=== PATIENT | female | born 1995 | race Caucasian/White ===

== ENCOUNTER 2017-03-23 12:01 | Emergency (ER) | payer BC, OTHER ==
[~2017-03-23] VITALS: Ht 167.6 cm; Wt 83.9 kg
[2017-03-23 12:20] LABS: BILIRUBIN,URINE NEGATIVE (NEGATIVE); KETONES,URINE NEGATIVE (NEGATIVE); LEUKOCYTE ESTERASE ,URINE 1+ (NEGATIVE); NITRITE,URINE NEGATIVE (NEGATIVE); PH,URINE 7 (5-9); PROTEIN,URINE NEGATIVE (NEGATIVE); UROBILINOGEN,URINE NORMAL (NORMAL)
--- NOTE | 2017-03-23 12:26 | ED General ---
General Chief Complaint: General Problems/Pain Stated Complaint: NAUSEA/L SIDE BACK PAIN Nursing Triage Note: pt ambulated to room. pt states approx 1 hour ago she started having severe left lower back pain. pt states she moved yesterday but didn't lift or do anything extra to cause this pain. pt states she is also having nausea but no vomiting. Nursing Sepsis Screen: No Definite Risk Source of Information: Patient Exam Limitations: No Limitations History of Present Illness Time Seen by Provider: 12:26 Initial Comments 21-year-old female patient presents to the emergency department complaints of left low back pain beginning one hour prior to arrival. Patient reports pain was a 7/10. Patient did take ibuprofen one hour ago with minimal improvement in symptoms. States pain is now 6/10. Patient reports moving yesterday, but did not lift anything heavy. Denies into the back to her knowledge. Patient does report nausea without vomiting. Denies diarrhea or urinary symptoms. Denies bowel or bladder incontinence. Timing/Duration: 1 Hour, Constant Modifying Factors: worse with Medication (no improvement with ibuprofen), worse with Movement Allergies and Home Medications Allergies Coded Allergies: No Known Drug Allergies (Unverified , 03/23/17) Home Medications Cyclobenzaprine HCl 10 Mg Tablet, 10 MG PO Q8H PRN for SPASMS, #14 Ref 0 Prescribed by: BEKAH GARCIA on 03/23/17 1335 Naproxen 500 Mg Tablet, 500 MG PO BID PRN for PAIN-MODERATE, #20 Ref 0 Prescribed by: BEKAH GARCIA on 03/23/17 1335 Ondansetron 8 Mg Tab.rapdis, 8 MG PO Q6H PRN for NAUSEA/VOMITING-1ST LINE, #10 Ref 0 Prescribed by: BEKAH GARCIA on 03/23/17 1335 Constitutional: No chills, No fever, No malaise Respiratory: no symptoms reported Cardiovascular: no symptoms reported Gastrointestinal: No abdominal pain, No constipation, No diarrhea, No melena, nausea, No vomiting Genitourinary: No decreased output, No discharge, No dysuria, No frequency, No hematuria, No pain : No LMP: Mar 02, 2017 Musculoskeletal: see HPI, back pain, No joint pain, No neck pain Skin: no symptoms reported Psychiatric/Neurological: Denies Numbness, Denies Paresthesia, Denies Tingling , Denies Weakness All Other Systems Reviewed Negative Unless Noted: Yes (Negative excepted noted.) Past Dogsotg-Nqdbyn-Vtsrga Hx Patient Social History Alcohol Use: Denies Use Recreational Drug Use: No Smoking Status: Never a Smoker 2nd Hand Smoke Exposure: No Recent Foreign Travel: No Contact w/Someone Who Travel: No Recent Infectious Disease Expo: No Recent Hopitalizations: No Seasonal Allergies Seasonal Allergies: No Surgeries HX Surgeries: Yes Surgeries: Orthopedic Respiratory Hx Respiratory Disorders: No Cardiovascular Hx Cardiac Disorders: No Neurological Hx Neurological Disorders: No Genitourinary Hx Genitourinary Disorders: No Gastrointestinal Hx Gastrointestinal Disorders: No Musculoskeletal Hx Musculoskeletal Disorders: No Reviewed Nursing Assessment Reviewed/Agree w Nursing PMH: Yes Family Medical History Significant Family History: No Pertinent Family Hx Physical Exam Vital Signs Vital Sign - Last 12Hours 03/23/17 12:12 Temp 97.5 Pulse 91 Resp 16 B/P (MAP) 140/80 Pulse Ox 98 O2 Delivery Room Air Capillary Refill : Less Than 3 Seconds General Appearance: No Apparent Distress, WD/WN HEENT: PERRL/EOMI, Pharynx Normal Neck: Normal Inspection, Supple Respiratory: Lungs Clear, Normal Breath Sounds, No Respiratory Distress, Other (left lower posterior and lateral ribs tender to palpation without evidence of deformity or swelling.) Cardiovascular: Regular Rate, Rhythm, No Edema, No Murmur, Normal Peripheral Pulses Gastrointestinal: Normal Bowel Sounds, No Organomegaly, Non Tender, Soft, No Distended Back: Normal Inspection, No CVA Tenderness, No Vertebral Tenderness, Other ( tenderness palpation over the left low back overlying the lower ribs. Muscle spasm noted. ) Extremity: Normal Capillary Refill, Normal Inspection, Normal Range of Motion, Non Tender, No Pedal Edema Neurologic/Psychiatric: Alert, Oriented x3, No Motor/Sensory Deficits, Normal Mood/Affect Skin: Normal Color, Warm/Dry Progress/Results/Core Measures Results/Orders Lab Results Laboratory Tests Test 03/23/17 12:09 03/23/17 12:49 Range/Units Urine Color YELLOW Urine Clarity SLIGHTLY CLOUDY Urine pH 7 5-9 Urine Specific [place] 1.010 L 1.016-1.022 Urine Protein NEGATIVE NEGATIVE Urine Glucose (UA) NEGATIVE NEGATIVE Urine Ketones NEGATIVE NEGATIVE Urine Nitrite NEGATIVE NEGATIVE Urine Bilirubin NEGATIVE NEGATIVE Urine Urobilinogen NORMAL NORMAL MG/DL Urine Leukocyte Esterase 1+ H NEGATIVE Urine RBC (Auto) NEGATIVE NEGATIVE Urine RBC NONE /HPF Urine WBC RARE /HPF Urine Squamous Epithelial Cells 10-25 H /HPF Urine Crystals NONE /LPF Urine Bacteria TRACE /HPF Urine Casts NONE /LPF Urine Mucus NEGATIVE /LPF Urine Culture Indicated NO White Blood Count 9.2 4.3-11.0 10^3/uL Red Blood Count 4.63 4.35-5.85 10^6/uL Hemoglobin 12.3 11.5-16.0 G/DL Hematocrit 38 35-52 % Mean Corpuscular Volume 82 80-99 FL Mean Corpuscular Hemoglobin 27 25-34 PG Mean Corpuscular Hemoglobin Concent 33 32-36 G/DL Red Cell Distribution Width 13.6 10.0-14.5 % Platelet Count 332 130-400 10^3/uL Mean Platelet Volume 10.8 H 7.4-10.4 FL Neutrophils (%) (Auto) 64 42-75 % Lymphocytes (%) (Auto) 28 12-44 % Monocytes (%) (Auto) 7 0-12 % Eosinophils (%) (Auto) 1 0-10 % Basophils (%) (Auto) 0 0-10 % Neutrophils # (Auto) 5.9 1.8-7.8 X 10^3 Lymphocytes # (Auto) 2.6 1.0-4.0 X 10^3 Monocytes # (Auto) 0.6 0.0-1.0 X 10^3 Eosinophils # (Auto) 0.1 0.0-0.3 10^3/uL Basophils # (Auto) 0.0 0.0-0.1 10^3/uL Sodium Level 141 135-145 MMOL/L Potassium Level 3.9 3.6-5.0 MMOL/L Chloride Level 109 H 98-107 MMOL/L Carbon Dioxide Level 21 21-32 MMOL/L Anion Gap 11 5-14 MMOL/L Blood Urea Nitrogen 9 7-18 MG/DL Creatinine 0.78 0.60-1.30 MG/DL Estimat Glomerular Filtration Rate > 60 BUN/Creatinine Ratio 12 Glucose Level 94 70-105 MG/DL Calcium Level 9.6 8.5-10.1 MG/DL Total Bilirubin 0.3 0.1-1.0 MG/DL Aspartate Amino Transf (AST/SGOT) 16 5-34 U/L Alanine Aminotransferase (ALT/SGPT) 21 0-55 U/L Alkaline Phosphatase 102 40-136 U/L Total Protein 7.4 6.4-8.2 GM/DL Albumin 3.8 3.2-4.5 GM/DL Lipase 14 8-78 U/L My Orders Orders - BEKAH GARCIA Cbc With Automated Diff (03/23/17 12:13) Comprehensive Metabolic Panel (03/23/17 12:13) Lipase (03/23/17 12:13) Ua Culture If Indicated (03/23/17 12:13) Saline Lock/Iv-Start (03/23/17 12:13) Urine Bedside (03/23/17 12:13) Fentanyl Injection (Sublimaze Injection (03/23/17 12:38) Ondansetron Injection (Zofran Injectio (03/23/17 12:45) Ns Iv 1000 Ml (Sodium Chloride 0.9%) (03/23/17 12:38) Orphenadrine Injection (Norflex Injectio (03/23/17 12:38) Medications Given in ED Current Medications Medications Dose Ordered Sig/Rory Route Start Time Stop Time Status Last Admin Dose Admin Ondansetron HCl 4 mg ONCE ONCE IVP 03/23/17 12:45 03/23/17 12:46 DC 03/23/17 12:59 4 MG Sodium Chloride 1,000 ml @ 0 mls/hr Q0M ONCE IV 03/23/17 12:38 03/23/17 12:40 DC 03/23/17 13:00 1,000 MLS/HR Vital Signs/I&O Vital Sign - Last 12Hours 03/23/17 12:12 Temp 97.5 Pulse 91 Resp 16 B/P (MAP) 140/80 Pulse Ox 98 O2 Delivery Room Air Blood Pressure Mean: 100 Point of Care Testing Urine -Bedside: Negative Departure Communication Progress Notes Patient seen and evaluated later. Patient was given IV fluids, Zofran, Norflex , and a small dose of fentanyl. Patient reports resolution of symptoms. Plan for discharge to home. Patient ambulated from the emergency department without difficulty. Impression Impression: Primary Impression: Strain of muscle, fascia and tendon of lower back, initial encounter Additional Impression: Nausea alone Disposition: 01 HOME, SELF-CARE Condition: Improved Departure-Patient Inst. Decision time for Depature: 13:31 Referrals: [facility] (PCP/Family) Primary Care Physician Patient Instructions: Low Back Pain (DC) Add. Discharge Instructions: All discharge instructions reviewed with patient and/or family. Voiced understanding. Medications as directed. Tylenol extra strength over the counter as directed. Ice pack or heating pads as needed for pain. Consider chiropractor or massage therapy. Follow-up with your family practitioner for recheck if needed. Return to the emergency department for worsened symptoms, abdominal pain, numbness, weakness, bowel incontinence, bladder incontinence, or any other concerns. Scripts Naproxen (Naprosyn) 500 Mg Tablet 500 MG PO BID Y for PAIN-MODERATE, #20 TAB 0 Refills Prov: BEKAH GARCIA 03/23/17 Cyclobenzaprine HCl (Cyclobenzaprine HCl) 10 Mg Tablet 10 MG PO Q8H Y for SPASMS, #14 TAB 0 Refills Prov: BEKAH GARCIA 03/23/17 Ondansetron (Ondansetron Odt) 8 Mg Tab.rapdis 8 MG PO Q6H Y for NAUSEA/VOMITING-1ST LINE, #10 TAB 0 Refills Prov: BEKAH GARCIA 03/23/17 Work/School Note: Work Release Form Date Seen in the Emergency Department: Mar 23, 2017 Return to Work: Mar 25, 2017 Images Torso/Trunk 1 - Muscle Spams, Tenderness BEKAH GARCIA Mar 23, 2017 12:26
[2017-03-23 12:32] LABS: WBC,URINE RARE /HPF
[2017-03-23] MEDS ORDERED: ORPHENADRINE 60 MG/2 ML (NORFLEX) AMP IV STA (12:38)
[2017-03-23] MEDS ORDERED: fentaNYL INJECTION 100 MCG/2 ML AMP IVP STA (12:38)
[2017-03-23] MEDS ORDERED: NS IV 1000 ML 1,000 ML IV ONE (12:38)
[2017-03-23] MEDS ORDERED: ONDANSETRON 4 MG/2 ML (SDV) Z0FRAN IVP ONE (12:45)
[2017-03-23 12:58] LABS: BASOPHILS % (AUTO) 0 % (0-10); EOSINOPHILS # (AUTO) 0.1 10^3/uL (0.0-0.3); EOSINOPHILS % (AUTO) 1 % (0-10); LYMPHOCYTES # (AUTO) 2.6 X 10^3 (1.0-4.0); LYMPHOCYTES % (AUTO) 28 % (12-44); MEAN CORPUSCULAR HEMOGLOBIN 27 PG (25-34); MEAN CORPUSCULAR HGB CONC 33 G/DL (32-36); MEAN CORPUSCULAR VOLUME 82 FL (80-99); MEAN PLATELET VOLUME 10.8 FL (7.4-10.4); MONOCYTES # (AUTO) 0.6 X 10^3 (0.0-1.0); MONOCYTES % (AUTO) 7 % (0-12); NEUTROPHILS # (AUTO) 5.9 X 10^3 (1.8-7.8); NEUTROPHILS % (AUTO) 64 % (42-75); PLATELET COUNT 332 10^3/uL (130-400); RED BLOOD COUNT 4.63 10^6/uL (4.35-5.85); RED CELL DISTRIBUTION WIDTH 13.6 % (10.0-14.5); WHITE BLOOD COUNT 9.2 10^3/uL (4.3-11.0)
[2017-03-23 13:18] LABS: ALANINE AMINOTRANSFERASE 21 U/L (0-55); ALBUMIN 3.8 GM/DL (3.2-4.5); ANION GAP 11 MMOL/L (5-14); ASPARTATE AMINO TRANSFERASE 16 U/L (5-34); BILIRUBIN,TOTAL 0.3 MG/DL (0.1-1.0); BLOOD UREA NITROGEN 9 MG/DL (7-18); BUN/CREATININE RATIO 12; CALCIUM 9.6 MG/DL (8.5-10.1); CARBON DIOXIDE 21 MMOL/L (21-32); CHLORIDE 109 MMOL/L (98-107); CREATININE SERUM 0.78 MG/DL (0.60-1.30); GFR ESTIMATED > 60; GLUCOSE 94 MG/DL (70-105); LIPASE 14 U/L (8-78); POTASSIUM 3.9 MMOL/L (3.6-5.0); SODIUM 141 MMOL/L (135-145); TOTAL PROTEIN 7.4 GM/DL (6.4-8.2)
[2017-03-23] MEDS ORDERED: ONDA8TAB13 PO (13:35)
[2017-03-23] MEDS ORDERED: CYCL10TA9 PO (13:35)
[2017-03-23] MEDS ORDERED: NAPR500T PO (13:35)
[2017-03-23 14:00] VITALS: BP 124/76
== END 2017-03-23 14:00 | disposition home or self-care (01) ==
LOC: EDUNIT# 12:01 → ER 12:04
DX: S39.012A Strain of muscle, fascia and tendon of lower back, initial encounter (principal); R11.0 Nausea; X58.XXXA Exposure to other specified factors, initial encounter
CPT/HCPCS: 36415; 80053; 81000; 83690; 84703; 85025; 96361; 96374; 96375

== ENCOUNTER → 2017-08-06 | Outpatient (CLI) | payer BC ==
[~2017-08-06] MED LIST: CYCL10TA9 PO; NAPR-1071 PO; ONDA8TAB13 PO
--- NOTE | 2017-08-06 11:50 | Diagnostic Imaging Report ---
PROCEDURE: MRI left joint lower extremity without contrast. TECHNIQUE: Multiplanar, multisequence non contrast-enhanced MRI of the left lower extremity was accomplished. INDICATION: Left knee pain. FINDINGS: There is no significant effusion. No Montes's cyst. The extensor mechanism is intact. The ACL and the PCL are intact. The medial and the lateral menisci appear intact. The MCL and lateral collateral ligament complex appear intact. There is no significant bone marrow contusion. The articular cartilage appears intact. IMPRESSION: Unremarkable exam. Dictated by: Dictated on workstation # [id number]
== END ==
LOC: RAD 10:10
PROVIDERS: ATTEND Orthopaedic Surgery
DX: S83.207A Unspecified tear of unspecified meniscus, current injury, left knee, initial encounter (principal); M67.52 Plica syndrome, left knee
CPT/HCPCS: 73721

== ENCOUNTER → 2018-10-12 | Outpatient (CLI) | payer BC ==
--- NOTE | 2018-10-12 09:12 | Diagnostic Imaging Report ---
PROCEDURE: US Thyroid. TECHNIQUE: Multiple real-time grayscale images were obtained of the thyroid in various projections. INDICATION: Enlarged thyroid. FINDINGS: Right lobe of the thyroid measures 4.9 x 1.6 x 1.6 cm and the left lobe measures 5.4 x 1.6 x 1.5 cm. The isthmus is 3 mm in thickness. The right lobe of the thyroid shows fairly homogeneous echotexture. No discrete mass is seen. Left lobe contains a small hypoechoic nodule measuring 7 mm x 3 mm x 5 mm. No dominant mass is detected. IMPRESSION: Subcentimeter left lobe thyroid nodule. No dominant thyroid mass is detected. Dictated by: Dictated on workstation # [id number]
== END ==
LOC: RAD 07:49
PROVIDERS: ATTEND Nurse Practitioner Family
DX: E04.1 Nontoxic single thyroid nodule (principal)
CPT/HCPCS: 76536

== ENCOUNTER → 2018-10-27 | Outpatient (CLI) | payer BC ==
--- NOTE | 2018-10-27 13:21 | Diagnostic Imaging Report ---
Right knee at 1023. Indication: Knee pain. Three views were obtained. There are no prior studies available for comparison. There is no fracture, dislocation or acute bony abnormality evident. The knee joint is fairly well-maintained. There does seem to be mild soft tissue edema along the anterior aspect of the patella. The soft tissues are unremarkable. Impression: 1. There is no evidence for acute bony abnormality. 2. There does appear to be soft tissue edema anterior to the patella. Clinical followup is recommended. Dictated by: Dictated on workstation # [id number]
== END ==
LOC: RAD 10:02
DX: M25.561 Pain in right knee (principal)
CPT/HCPCS: 73562